=== PATIENT | male | born 1990 | race Caucasian/White ===

== ENCOUNTER 2017-05-06 11:30 | Inpatient (IN) | payer OTHER ==
[~2017-05-06] VITALS: Ht 177.8 cm; Wt 68.0 kg
[2017-05-06] VITALS (19 sets, daily range): BP systolic 76–111; BP diastolic 42–68
[2017-05-06] MEDS ORDERED: Sodium Bicarbonate 50ml Carp IV ONE ×3 (12:15→17:45)
[2017-05-06 12:24] LABS: APPEARANCE,URINE CLEAR; BILIRUBIN, URINE NEGATIVE (NEGATIVE); COLOR,URINE PALE YELLOW; GLUCOSE, URINE (UA) 4+ (NEGATIVE); KETONES,URINE 4+ (NEGATIVE); LEUKOCYTE ESTERASE ,URINE NEGATIVE (NEGATIVE); NITRITE,URINE NEGATIVE (NEGATIVE); PH,URINE 5 (4.5-8.0); PROTEIN,URINE 2+ (NEGATIVE); UROBILINOGEN,URINE NORMAL MG/DL (0.0-1.0)
[2017-05-06 12:41] LABS: HEMATOCRIT 46.1 % (42.0-52.0); HEMOGLOBIN 13.8 G/DL (14.2-18.0); MEAN CORPUSCULAR VOLUME 113 FL (80-99); PLATELET COUNT 637 K/UL (150-450); RED BLOOD COUNT 4.07 M/UL (4.70-6.10); RED CELL DISTRIBUTION WIDTH 13.4 % (11.6-14.8)
[2017-05-06 12:47] LABS: ALANINE AMINOTRANSFERASE 42 U/L (12-78); ALBUMIN 3.4 G/DL (3.4-5.0); ALBUMIN/GLOBULIN RATIO 0.9 (1.0-2.7); ALKALINE PHOSPHATASE 264 U/L (46-116); ANION GAP 39 mmol/L (5-15); ASPARTATE AMINO TRANSFERASE 31 U/L (15-37); BILIRUBIN,TOTAL 0.5 MG/DL (0.2-1.0); BLOOD UREA NITROGEN 31 mg/dL (7-18); CALCIUM 8.2 MG/DL (8.5-10.1); CHLORIDE 85 MMOL/L (98-107); CREATININE 2.3 MG/DL (0.55-1.30); SODIUM 129 MMOL/L (136-145)
[2017-05-06 12:48] LABS: CARBON DIOXIDE 5 MMOL/L (21-32); POTASSIUM 6.5 MMOL/L (3.5-5.1)
[2017-05-06 12:49] LABS: WHITE BLOOD COUNT 48.6 K/UL (4.8-10.8)
--- NOTE | 2017-05-06 13:02 | Emergency Room Report ---
History of Present Illness General Chief Complaint: Altered Mental Status Source: Family Member, EMS Present Illness HPI 26 show male brought in by EMS for altered mental status glucose check at-home was "elevated" per EMS Patient with known insulin-dependent diabetes, has insulin pump Per roommates, patient was drinking 2 nights ago, spent yesterday in bed recovering from a lower, stated they noted him more altered and usual since last night, called paramedics this morning Patient unable to provide history of present illness 22 altered mental status Allergies: Coded Allergies: UNABLE TO ASSESS (Unverified , 05/06/17) Patient History Past Medical History: unable to obtain, DM Past Surgical History: unable to obtain Pertinent Family History: unable to obtain Social History: Reports: alcohol use, Denies: smoking, drug use Immunizations: UTD Reviewed Nursing Documentation: PMH: Agreed, PSxH: Agreed Nursing Documentation-PMH Past Medical History: No History, Except For Hx Diabetes: Yes Review of Systems All Other Systems: limited - AMS Physical Exam Vital Signs Date Time Temp Pulse Resp B/P (MAP) Pulse Ox O2 Delivery O2 Flow Rate FiO2 05/06/17 11:26 98.1 132 20 71/45 92 Room Air Sp02 EP Interpretation: reviewed, normal General Appearance: normal inspection, well appearing, no apparent distress, non-toxic, mild distress, other - Writhing on stretcher, altered mentation Head: normocephalic, atraumatic Eyes: bilateral eye PERRL, bilateral eye EOMI ENT: normal ENT inspection, hearing grossly normal, normal pharynx, no angioedema, normal voice, TMs + canals normal, uvula midline, moist mucus membranes Neck: normal inspection, full range of motion, supple, thyroid normal, no meningismus, no bony tend Respiratory: normal inspection, lungs clear, normal breath sounds, no rhonchi, no respiratory distress, no retraction, no accessory muscle use, no wheezing, speaking full sentences Cardiovascular #1: regular rate, rhythm, no edema, no JVD, normal capillary refill Gastrointestinal: normal inspection, normal bowel sounds, non tender, soft, no mass, no peritonitis, non-distended, no guarding, no hernia, no pulsatile mass Genitourinary: no CVA tenderness Musculoskeletal: normal inspection, back normal, normal range of motion, no calf tenderness, pelvis stable, Hesham's Sign negative Neurologic: normal inspection, alert, motor strength/tone normal, cerebellar normal, normal gait, speech normal, other - making focal movements Psychiatric: normal inspection, judgement/insight normal, mood/affect normal, no suicidal/homicidal ideation, no delusions Skin: normal inspection, normal color, no rash Lymphatic: normal inspection, no adenopathy Procedures Critical Care Time Critical Care Time CC time 45 min Critical care time endorsed for this patient for AMS from DKA Critical care time includes review of laboratory tests, imaging, review of EMR, review of paperwork from SNF (if available), discussion with patient and family (if available), review of code status/POLS (if available). Critical care time also likely includes assessment of fluid status, stabilization of vital signs, selection and dosing of appropriate antibiotics, selection and dosing of Aspirin/Plavix/Heparin/Lovenox, discussion with PMD/ attending hospitalist/shoe singer. Critical care time does not include any procedures which are documented elsewhere in this EMR. Medical Decision Making Diagnostic Impression: Primary Impression: Altered mental status Qualified Codes: R41.82 - Altered mental status, unspecified Additional Impression: DKA (diabetic ketoacidoses) Qualified Codes: E10.10 - Type 1 diabetes mellitus with ketoacidosis without coma ER Course Patient's vital signs: Tachycardic 130, hypotension Fluid responsive Labs significant for severe DKA, acidotic with pH 6.8, AG 39, K 6.5, glucose > 1000 Was given multiple liters of IV fluid in the ER Has 2 peripheral IV access Started on insulin drip Elevated leuks - blood Cx pending ,Abx given [place] approved for ICU admission here 100pm, Dr Brownign from [place] Endorsed to Dr Guzman at 139pm Rhythm Strip Diag. Results EP Interpretation: yes Rate: 89 Rhythm: NSR, no PVC's, no ectopy Last Vital Signs Date Time Temp Pulse Resp B/P (MAP) Pulse Ox O2 Delivery O2 Flow Rate FiO2 05/06/17 11:26 98.1 132 20 71/45 92 Room Air Status: improved Disposition: ADMITTED INPATIENT Condition: Critical Referrals: [facility] (PCP) RAJINDER DOMÍNGUEZ M.D. May 06, 2017 13:02
[2017-05-06] MEDS ORDERED: Zosyn 3.375gm inj ONE ×2 (13:44→13:57)
[2017-05-06] MEDS ORDERED: Piperacillin/Tazobactam 3.375 GM in NS 110 ML IVPB ONE (13:45)
[2017-05-06] MEDS ORDERED: Metoclopramide 10mg/2ml Inj IVP ONE (14:45)
[2017-05-06] MEDS ORDERED: LANTUS SOL100 UNIT/1 SUBQ (16:15)
[2017-05-06 16:45] LABS: ALANINE AMINOTRANSFERASE 35 U/L (12-78); ALBUMIN 2.4 G/DL (3.4-5.0); ALBUMIN/GLOBULIN RATIO 0.7 (1.0-2.7); ALKALINE PHOSPHATASE 196 U/L (46-116); ASPARTATE AMINO TRANSFERASE 30 U/L (15-37); BILIRUBIN,TOTAL 0.5 MG/DL (0.2-1.0); BLOOD UREA NITROGEN 30 mg/dL (7-18); CHLORIDE 99 MMOL/L (98-107); SODIUM 138 MMOL/L (136-145)
[2017-05-06] MEDS ORDERED: DiphenhydrAMINE 50mg/ml Inj IVP ONE (16:45)
[2017-05-06 17:26] LABS: CARBON DIOXIDE 5 MMOL/L (21-32); CREATININE 1.9 MG/DL (0.55-1.30)
[2017-05-06 17:27] LABS: CALCIUM 6.1 MG/DL (8.5-10.1)
[2017-05-06] MEDS ORDERED: Calcium Gluconate 1gm/10ml vial IVP ONE (17:45)
[2017-05-06] MEDS ORDERED: Sodium Polystyrene Sulfonate 15gm Powder ORAL ONE (17:45)
[2017-05-06] MEDS ORDERED: Vancomycin 1 GM in D5W 275 ML IVPB ONE (22:15)
[2017-05-06] MEDS ORDERED: Sodium Chloride 500ML 500 ML IV ONE ×2 (22:15→23:30)
[2017-05-06] MEDS: D5 1/2NS 1,000 ML IV SCH (22:33)
[2017-05-06] MEDS ORDERED: Vancomycin 1gm inj IVPB ONE (22:39)
[2017-05-06 23:35] LABS: ANION GAP 23 mmol/L (5-15); BLOOD UREA NITROGEN 23 mg/dL (7-18); CALCIUM 6.2 MG/DL (8.5-10.1); CARBON DIOXIDE 14 MMOL/L (21-32); CHLORIDE 111 MMOL/L (98-107); CREATININE 1.7 MG/DL (0.55-1.30); POTASSIUM 3.5 MMOL/L (3.5-5.1); SODIUM 148 MMOL/L (136-145)
[2017-05-06] MEDS: D5 1/2NS w/KCl 20mEq 1,000 ML IV SCH (23:54)
[2017-05-07] VITALS (18 sets, daily range): BP systolic 86–132; BP diastolic 47–83
[2017-05-07] MEDS: D5 1/2NS 1,000 ML IV SCH (03:15)
[2017-05-07 03:18] LABS: ALANINE AMINOTRANSFERASE 45 U/L (12-78); ALBUMIN 2.3 G/DL (3.4-5.0); ALBUMIN/GLOBULIN RATIO 0.9 (1.0-2.7); ALKALINE PHOSPHATASE 149 U/L (46-116); ANION GAP 12 mmol/L (5-15); ASPARTATE AMINO TRANSFERASE 121 U/L (15-37); BILIRUBIN,TOTAL 0.2 MG/DL (0.2-1.0); BLOOD UREA NITROGEN 18 mg/dL (7-18); CARBON DIOXIDE 20 MMOL/L (21-32); CHLORIDE 114 MMOL/L (98-107); CREATININE 1.4 MG/DL (0.55-1.30); POTASSIUM 2.9 MMOL/L (3.5-5.1); SODIUM 146 MMOL/L (136-145)
[2017-05-07 03:24] LABS: CALCIUM 5.8 MG/DL (8.5-10.1)
[2017-05-07] MEDS ORDERED: D5 1/2NS w/KCl 40meq 1000ml 1,000 ML IV SCH (03:30)
[2017-05-07] MEDS ORDERED: Calcium Gluconate 1gm/10ml vial IVP ONE (03:30)
[2017-05-07] MEDS: D5 1/2NS w/KCl 20mEq 1,000 ML IV SCH (05:10)
[2017-05-07] MEDS ORDERED: D5 1/2NS w/KCl 20mEq 1,000 ML IV SCH (05:15)
[2017-05-07 07:26] LABS: ANION GAP 12 mmol/L (5-15); BLOOD UREA NITROGEN 16 mg/dL (7-18); CARBON DIOXIDE 20 MMOL/L (21-32); CHLORIDE 112 MMOL/L (98-107); CREATININE 1.3 MG/DL (0.55-1.30); POTASSIUM 3.2 MMOL/L (3.5-5.1); SODIUM 144 MMOL/L (136-145)
[2017-05-07 07:30] LABS: ALANINE AMINOTRANSFERASE 42 U/L (12-78); ALBUMIN 2.1 G/DL (3.4-5.0); ALBUMIN/GLOBULIN RATIO 0.8 (1.0-2.7); ALKALINE PHOSPHATASE 137 U/L (46-116); ASPARTATE AMINO TRANSFERASE 92 U/L (15-37); BILIRUBIN,TOTAL 0.2 MG/DL (0.2-1.0)
[2017-05-07] MEDS ORDERED: Vancomycin 1250mg/D5W 250ml IVPB SCH (10:00)
[2017-05-07] MEDS ORDERED: Vancomycin 1gm/D5W 275ml IVPB SCH ×2 (10:00)
--- NOTE | 2017-05-07 10:17 | History & Physical ---
History and Physical History & Physicial 26 show male brought in for altered mental status and was noted to be in DKA Patient with known insulin-dependent diabetes, and has insulin pump Per roommates, patient was drinking 2 nights ago, spent yesterday in bed recovering and was noted to be more altered, and paramedics were called Patient unable to provide history at onset but currently much improved with hydration and insulin drip Allergies: reviewed Past Medical History: type 1DM Past Surgical History: negative Pertinent Family History: denies Social History: Reports: alcohol use, Denies: smoking, drug use Reviewed of systems: nausea Physical WDWN NAD clear breath sounds bilaterally without rhonchi or wheeze [id number] without MRG NABS nontender no HSM no CCE nonfocal Laboratory Tests Test 05/06/17 11:28 05/06/17 11:45 05/06/17 12:00 05/06/17 15:15 Arterial Blood pH 6.800 (7.350-7.450) 6.800 (7.350-7.450) Arterial Blood Partial Pressure CO2 15.2 mmHg (35.0-45.0) *L 16.9 mmHg (35.0-45.0) *L Arterial Blood Partial Pressure O2 151.2 mmHg (75.0-100.0) H 68.4 mmHg (75.0-100.0) L Arterial Blood HCO3 2.3 mmol/L (22.0-26.0) L 2.9 mmol/L (22.0-26.0) L Arterial Blood Oxygen Saturation 97.6 % (92.0-98.0) 86.4 % (92.0-98.0) L Arterial Blood Base Excess -31.4 -29.8 [place] Test Positive Positive White Blood Count 48.6 K/UL (4.8-10.8) *H Red Blood Count 4.07 M/UL (4.70-6.10) L Hemoglobin 13.8 G/DL (14.2-18.0) L Hematocrit 46.1 % (42.0-52.0) Mean Corpuscular Volume 113 FL (80-99) H Mean Corpuscular Hemoglobin 33.8 PG (27.0-31.0) H Mean Corpuscular Hemoglobin Concent 29.9 G/DL (32.0-36.0) L Red Cell Distribution Width 13.4 % (11.6-14.8) Platelet Count 637 K/UL (150-450) H Mean Platelet Volume 5.5 FL (6.5-10.1) L Neutrophils (%) (Auto) % (45.0-75.0) Lymphocytes (%) (Auto) % (20.0-45.0) Monocytes (%) (Auto) % (1.0-10.0) Eosinophils (%) (Auto) % (0.0-3.0) Basophils (%) (Auto) % (0.0-2.0) Differential Total Cells Counted 100 Neutrophils % (Manual) 72 % (45-75) Lymphocytes % (Manual) 19 % (20-45) L Monocytes % (Manual) 6 % (1-10) Eosinophils % (Manual) 2 % (0-3) Basophils % (Manual) 1 % (0-2) Band Neutrophils 0 % (0-8) Platelet Estimate Increased H Platelet Morphology Normal Anisocytosis 2+ Macrocytosis 2+ Sodium Level 129 MMOL/L (136-145) L Potassium Level 6.5 MMOL/L (3.5-5.1) *H Chloride Level 85 MMOL/L (98-107) L Carbon Dioxide Level 5 MMOL/L (21-32) *L Anion Gap 39 mmol/L (5-15) H Blood Urea Nitrogen 31 mg/dL (7-18) H Creatinine 2.3 MG/DL (0.55-1.30) H Estimat Glomerular Filtration Rate 34.5 mL/min (>60) Glucose Level 1138 MG/DL (74-106) *H Calcium Level 8.2 MG/DL (8.5-10.1) L Magnesium Level 2.8 MG/DL (1.8-2.4) H Total Bilirubin 0.5 MG/DL (0.2-1.0) Aspartate Amino Transf (AST/SGOT) 31 U/L (15-37) Alanine Aminotransferase (ALT/SGPT) 42 U/L (12-78) Alkaline Phosphatase 264 U/L (46-116) H Total Protein 7.1 G/DL (6.4-8.2) Albumin 3.4 G/DL (3.4-5.0) Globulin 3.7 g/dL Albumin/Globulin Ratio 0.9 (1.0-2.7) L Lipase 753 U/L (73-393) H Acetone Level Positive-moderate (NEGATIVE) Urine Color Pale yellow Urine Appearance Clear Urine pH 5 (4.5-8.0) Urine Specific Monitor 1.015 (1.005-1.035) Urine Protein 2+ (NEGATIVE) H Urine Glucose (UA) 4+ (NEGATIVE) H Urine Ketones 4+ (NEGATIVE) H Urine Occult Blood Negative (NEGATIVE) Urine Nitrite Negative (NEGATIVE) Urine Bilirubin Negative (NEGATIVE) Urine Urobilinogen Normal MG/DL (0.0-1.0) Urine Leukocyte Esterase Negative (NEGATIVE) Urine RBC 0-2 /HPF (0 - 0) H Urine WBC 0-2 /HPF (0 - 0) Urine Squamous Epithelial Cells Occasional /LPF Urine Bacteria Occasional /HPF (NONE) Urine Hyaline Casts 0-2 /LPF (NONE) H Urine Opiates Screen Negative (NEGATIVE) Urine Barbiturates Screen Negative (NEGATIVE) Phencyclidine (PCP) Screen Negative (NEGATIVE) Urine Amphetamines Screen Negative (NEGATIVE) Urine Benzodiazepines Screen Negative (NEGATIVE) Urine Cocaine Screen Negative (NEGATIVE) Urine Marijuana (THC) Screen Negative (NEGATIVE) Test 05/06/17 15:30 05/06/17 22:30 05/07/17 02:40 05/07/17 06:30 Sodium Level 138 MMOL/L (136-145) 148 MMOL/L (136-145) #H 146 MMOL/L (136-145) H 144 MMOL/L (136-145) Potassium Level 5.0 MMOL/L (3.5-5.1) 3.5 MMOL/L (3.5-5.1) 2.9 MMOL/L (3.5-5.1) L 3.2 MMOL/L (3.5-5.1) L Chloride Level 99 MMOL/L (98-107) 111 MMOL/L (98-107) H 114 MMOL/L (98-107) H 112 MMOL/L (98-107) H Carbon Dioxide Level 5 MMOL/L (21-32) *L 14 MMOL/L (21-32) L 20 MMOL/L (21-32) L 20 MMOL/L (21-32) L Blood Urea Nitrogen 30 mg/dL (7-18) H 23 mg/dL (7-18) H 18 mg/dL (7-18) 16 mg/dL (7-18) Creatinine 1.9 MG/DL (0.55-1.30) H 1.7 MG/DL (0.55-1.30) H 1.4 MG/DL (0.55-1.30) H 1.3 MG/DL (0.55-1.30) Estimat Glomerular Filtration Rate 43.1 mL/min (>60) 49.0 mL/min (>60) > 60 mL/min (>60) > 60 mL/min (>60) Glucose Level 948 MG/DL (74-106) #*H 202 MG/DL (74-106) #H 188 MG/DL (74-106) H 170 MG/DL (74-106) H Calcium Level 6.1 MG/DL (8.5-10.1) #L 6.2 MG/DL (8.5-10.1) L 5.8 MG/DL (8.5-10.1) *L 6.0 MG/DL (8.5-10.1) L Total Bilirubin 0.5 MG/DL (0.2-1.0) 0.2 MG/DL (0.2-1.0) 0.2 MG/DL (0.2-1.0) Aspartate Amino Transf (AST/SGOT) 30 U/L (15-37) 121 U/L (15-37) H 92 U/L (15-37) H Alanine Aminotransferase (ALT/SGPT) 35 U/L (12-78) 45 U/L (12-78) 42 U/L (12-78) Alkaline Phosphatase 196 U/L (46-116) H 149 U/L (46-116) H 137 U/L (46-116) H Total Protein 5.7 G/DL (6.4-8.2) L 5.0 G/DL (6.4-8.2) L 4.8 G/DL (6.4-8.2) L Albumin 2.4 G/DL (3.4-5.0) L 2.3 G/DL (3.4-5.0) L 2.1 G/DL (3.4-5.0) L Globulin 3.3 g/dL 2.7 g/dL 2.7 g/dL Albumin/Globulin Ratio 0.7 (1.0-2.7) L 0.9 (1.0-2.7) L 0.8 (1.0-2.7) L Anion Gap 23 mmol/L (5-15) H 12 mmol/L (5-15) 12 mmol/L (5-15) Phosphorus Level 2.6 MG/DL (2.5-4.9) IMPRESSION DKA acidemia leukocytosis dehdyration electrolyte imbalance PLAN DKA protocol empiric antibiotics monitor lytes and replace ID evaluation ICU care stabilize and transfer to [place] SHREYA ACUNA May 07, 2017 10:17
[2017-05-07] MEDS: Zosyn 3.375gm q8h **Extended infusion IVPB SCH ×4 (10:41→17:16)
[2017-05-07 17:08] LABS: BASOPHILS % (AUTO) 0.5 % (0.0-2.0); EOSINOPHILS % (AUTO) 0.1 % (0.0-3.0); HEMATOCRIT 32.4 % (42.0-52.0); HEMOGLOBIN 10.5 G/DL (14.2-18.0); LYMPHOCYTES % (AUTO) 11.2 % (20.0-45.0); MEAN CORPUSCULAR VOLUME 97 FL (80-99); MONOCYTES % (AUTO) 5.1 % (1.0-10.0); NEUTROPHILS % (AUTO) 83.2 % (45.0-75.0); PLATELET COUNT 309 K/UL (150-450); RED BLOOD COUNT 3.32 M/UL (4.70-6.10); WHITE BLOOD COUNT 14.4 K/UL (4.8-10.8)
--- NOTE | 2017-05-07 21:00 | Consultation ---
DATE OF CONSULTATION: 05/07/2017 INFECTIOUS DISEASES CONSULTATION This consult is for coverage of Dr. Acosta. CONSULTING PHYSICIAN: Nate Harp M.D. PRIMARY ATTENDING PHYSICIAN: Nixon Guzman M.D. REASON FOR CONSULT: Leukocytosis. HISTORY OF PRESENT ILLNESS: The patient is a 26-year-old white male, admitted yesterday from home because of altered mental status. The patient is diabetic from young age. He was drinking two nights before admission the day of admission in bed was noted to have altered mental status. After admission, it was found the patient has hypercholesteremia, acidosis and ketosis, in the ICU on insulin drip. PAST MEDICAL HISTORY: Diabetes mellitus type 1 since 14 months old. The patient had also a history of scoliosis with a past operation. MEDICATIONS: Vancomycin, Zosyn, and Tylenol. ALLERGIES: [place] and derivatives. SOCIAL HISTORY: Single, has alcohol abuse. No recent travel history. No sick contact. REVIEW OF SYSTEMS: No fever. No chills. No nausea. No vomiting. No diarrhea. No problem passing urine. PHYSICAL EXAMINATION: GENERAL APPEARANCE: No acute distress at the present time. He is awake, alert, and oriented x3. VITAL SIGNS: Temperature is 97.6. He had a maximum temperature of 100.2 last night. Current temperature 97.6, pulse 100, and blood pressure 109/64. HEAD AND NECK: [place] conjunctiva. No oral lesion. HEART: S1 and S2 regular and tachycardic. LUNGS: Clear. ABDOMEN: Soft and nontender. EXTREMITIES: He has edema, has previous IV site in the left hand. LABORATORY AND DIAGNOSTIC DATA: Sodium 144, potassium 3.0, chloride 112, bicarbonate 20, BUN 16, and creatinine 1.3. Creatinine was 2.3 at the time of admission. Lipase is 553. WBC 486, hemoglobin 13.8, hematocrit 46.1, and platelets are 637. IMPRESSION: 1. Seems to have pancreatitis and leukocytosis. 2. Diabetic ketoacidosis. 3. The patient has diabetes mellitus type 1. 4. Acute renal failure that is improving. 5. He has electrolyte imbalance, hypocalcemia, and hypokalemia. RECOMMENDATIONS: We will continue with vancomycin and Zosyn. We will follow up with chest x-ray. At the end of my exam, I thank Dr. Guzman for involving me in the care of this patient. Nate Harp M.D. DR: VANGIE JOB#: [id number] CC:
--- NOTE | 2017-05-09 00:03 | Cardiology Report ---
APPROVED REPORT EKG Measurement Heart [id number] Atrial fibrillation with rapid ventricular response Abnormal ECG
--- NOTE | 2017-05-09 14:53 | Diagnostic Imaging Report ---
Indication: Cough Technique: XRAY Chest 1v Comparison: None Findings: Cardiomediastinal silhouette is within normal limits. There is no consolidation or pleural effusion. Spinal hardware is seen. Impression: No acute cardiopulmonary disease. Spinal hardware.
--- NOTE | 2017-05-10 08:11 | Discharge Summary ---
Discharge Summary Hospital Course Date of Admission May 06, 2017 at 12:31 Date of Discharge May 07, 2017 at 20:55 Admitting Diagnosis DKA HPI Travis Diaz is a 26 year old male who was admitted on May 06, 2017 at 12:31 for Altered Mental Status Hospital Course dc summary #[id number] Discharge Condition Upon Discharge: stable Discharge Disposition Patient was discharged to [facility] Discharge Diagnoses: Discharge Instructions Discharge Instructions Special Instructions I have been assigned to complete a D/C Summary on this account. I was not involved in the patient management Brigette Hdz NP (Vanchtein) May 10, 2017 08:11
--- NOTE | 2017-05-11 05:45 | Discharge Summary 2 SIG ---
DATE OF ADMISSION: 05/06/2017 DATE OF DISCHARGE: 05/07/2017 REASON FOR ADMISSION: 26-year-old male was brought by paramedics for altered mental status. The patient was found to be in severe DKA with pH -6.8, anion gap -39, potassium -6.5, bicarbonate- 5 and glucose over 1000. The patient was noted to have leukocytosis, WBC -48.6. Lipase -753. Urine tox screen was negative. Urinalysis with +4 glucose, +4 ketones, and +2 protein. The patient showed evidence of acute renal failure with BUN 31 and creatinine 2.3. Chest x-ray revealed no evidence of acute cardiopulmonary pathology. EKG showed normal sinus rhythm. No ischemic changes. No PVC. No ectopy. The patient was given multiple intravenous fluids in ED. Patient was started on insulin drip. The patient was pancultured and started on empiric antibiotics. The patient was started on a bicarbonate drip as well. Hydration was continued. [place] approved for ICU admission. The patient was transferred to ICU for further management with diagnosis of altered mental status, DKA, leukocytosis, dehydration, and acute renal failure. HOSPITAL COURSE: The patient was admitted to ICU. Diabetic ketoacidosis was managed as per protocol. The patient was on insulin drip and aggressive hydration. Electrolytes were closely monitored and replaced as needed. The patient was noted to have hypokalemia and hypocalcemia. Renal parameters were closely monitored. Creatinine down to 1.3 prior to discharge. Potassium from 2.9, up to 3.2. Calcium 6 from 5.0. Leukocytosis trending down- 14.4. Blood cultures preliminary negative. Infectious Diseases seen and evaluated the patient and started the patient on empiric antibiotics. The patient possibly had pancreatitis, noted elevated lipase on admission -753. Anion gap closed,-12. Blood sugar was improving. The patient was stabilized and was stable for transfer to [place] for further management. FINAL DIAGNOSES: 1. Diabetic ketoacidosis. 2. Altered mental status, likely secondary to severe diabetic ketoacidosis. 3. Leukocytosis, improving. 4. Dehydration. 5. Electrolyte imbalance (hypokalemia, hypocalcemia). 6. Acute renal failure, resolving. DISCHARGE MEDICATIONS: List of medication was sent to admitting facility. DISCHARGE INSTRUCTIONS: The patient was transferred to [facility] as per insurance. Follow up with the medical doctor at the facility. Nixon Guzman M.D. I have been assigned to dictate discharge summary on this account and I was not involved in the patient's management. Brigette Hdz N.P. (Vanchtein) DR: Freya JOB#: [id number] CC: [id number]
== END 2017-05-07 20:55 | DRG 637 ==
LOC: EDBD 11:30 → EMR 12:15 → ICU 12:31 → EDBEDREQ 05-07 03:05
DX: E10.10 Type 1 diabetes mellitus with ketoacidosis without coma (principal); K85.90 Acute pancreatitis without necrosis or infection, unspecified; N17.9 Acute kidney failure, unspecified; E86.0 Dehydration; D72.829 Elevated white blood cell count, unspecified; Z96.41 Presence of insulin pump (external) (internal); Z79.4 Long term (current) use of insulin
CPT/HCPCS: 36415; 36600; 71045; 80048; 80053; 80307; 81003; 82009; 82803; 82962; 83690; 83735; 84100; 85007; 85025; 87040; 87081; 93005; 99291; J2405; J8499